=== PATIENT | male | born 2000 | race Caucasian/White ===

== ENCOUNTER 2022-03-11 10:19 | Emergency (ER) | payer MEDICAID, SELFPAY ==
[2022-03-11 10:20] VITALS: BP 130/79; PULSE 77; RESP 16; TEMP 36.8; O2SAT 100; BMI 22.9
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
[2022-03-11 11:15] LABS: Amphetamine Urine VISTA POSITIVE (<1000 ng/mL); Barbiturate Urine VISTA NEGATIVE (< 200 ng/mL); Benzodiazepine Urine VISTA NEGATIVE (< 200 ng/mL); Cocaine Urine VISTA NEGATIVE (< 300 ng/mL); Ecstacy Urine VISTA NEGATIVE (< 500 ng/mL); Methadone Urine VISTA NEGATIVE (< 300 ng/mL); PCP Urine VISTA NEGATIVE (< 25 ng/mL); THC Urine VISTA POSITIVE (< 50 ng/mL); Vista UDS pH Range 6
[2022-03-11 11:32] LABS: Absolute Lymphocyte Count 1.04 X10^3/uL (0.83-4.51); Absolute Neutrophil Count 2.9 X10^3/uL (2.0-7.7); Basophil# 0.03 X10^3/uL; Basophil% 0.7 % (0-1); Eosinophil# 0.09 X10^3/uL; Hematocrit 41.3 % (40-54); Hemoglobin 13.9 g/dL (13.0-16.5); Lymphocyte # 1.04 X10^3/ul (0.83-4.51); Lymphocyte % 22.8 % (19-41); Mean Corp Hgb Conc 33.7 g/dL (32-36); Mean Corpuscular Hgb 30.5 pg (27.0-32.0); Mean Corpuscular Volume 90.8 fL (80-94); Mean Platelet Vol. 9.6 fl (6.2-12.0); Monocyte# 0.52 X10^3/uL; Monocyte% 11.4 % (0-10); NRBC Flagged by Analyzer 0 % (0-5); Neutrophil # 2.86 X10^3/uL (2.7-7.7); Neutrophil % 62.7 % (47-70); Platelet Count 206 K/mm3 (150-450); RBC Distribution Width CV 13.2 % (11.6-14.6); RBC Distribution Width SD 43.7 fl (35.1-43.9); Red Blood Count 4.55 M/mm3 (4.6-6.2); White Blood Count 4.6 K/mm3 (4.4-11.0)
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
[2022-03-11 11:54] LABS: Anion Gap 3 (5-15); BUN 19 mg/dL (7-18); BUN/Creat Ratio 22.3 RATIO (10-20); Calcium,Total 9.5 mg/dL (8.5-10.1); Chloride 107 mmol/L (98-107); Creatinine, Serum 0.85 mg/dL (0.70-1.30); EST Glomerular Filtration Rate 121 mL/min (>60); Est Glom Filt Rate - Afr Amer 146 mL/min (>60); Glucose 103 mg/dL (74-106); Sodium Level 140 mmol/L (136-145)
--- NOTE | 2022-03-11 12:37 | ED.RN ---
Nurse asked for PD to be paged to the room, called security and they said they would come with PD also.
--- NOTE | 2022-03-11 12:52 | ED.RN ---
call made to physicians to get squad to transfer pt. ETA 30 mins.
[2022-03-11] MEDS: LORazepam 2 MG/ML Syringe IM (12:56)
[2022-03-11 13:19] VITALS: BP 126/74; PULSE 84; RESP 16; TEMP 36.3; O2SAT 100
--- NOTE | 2022-03-11 13:39 | ED.RN ---
CALLED REPORT TO [facility]. BECAUSE HE WAS GIVEN ATIVAN IM HE HAS TO REMAIN AT OUR FACILITY FOR 4 HRS
--- NOTE | 2022-03-11 15:31 | CM.ED ---
Lucho from [facility] called. Patient was accepted. Accepting practitioner is JUAN MANUEL Kirkland and patient is going on the Dual Diagnosis Unit. Bed assignment when he gets to the facility. Report is [phone] option 1. ANNIE was advised that [facility] would not take patient for 4 hours as Ativan was given. ANNIE called Taylor at [facility]. She said that it was their policy that they could NOT GIVE any medication that was emergency medication. We would need to wait 4 hours for patient to be transferred to [facility]. ANNIE updated patient's mother and patient that Suboxone could NOT be prescribed at [facility] and mother verbalized understanding. She plans to speak to staff at [facility] about patient being connected there. Mother said that she would prefer patient not have Suboxone but knows that patient wants Suboxone. Plan: [facility] Stephanie ANDRADE
[2022-03-11 17:00] VITALS: BP 143/98; PULSE 85; RESP 16; O2SAT 100
[2022-03-11] MEDS: LORazepam 1 MG Tablet 2 MG PO (17:01)
[2022-03-11] MEDS: proMETHazine 25 MG/ML Syringe IM (17:02)
== END 2022-03-11 17:36 ==
PROVIDERS: Emergency Provider Emergency Medicine; PCP Family Medicine; Visit Provider Emergency Medicine
DX: R45.1 Restlessness and agitation (principal); F11.10 Opioid abuse, uncomplicated; R45.851 Suicidal ideations; F17.210 Nicotine dependence, cigarettes, uncomplicated
CPT/HCPCS: 80048; 80307; 82077; 85025; 87811; 96372; 99285